=== PATIENT | female | born 1970 | race Caucasian/White ===

== ENCOUNTER 2018-03-20 12:51 | Day surgery (SDC) | payer BC ==
[~2018-03-20] VITALS: Ht 170.2 cm; Wt 139.1 kg
--- NOTE | ~2018-03-20 | OP ---
PATIENT NAME: BRENDAN WILLIS MEDICAL RECORD: [id number] :68 LOCATION:[facility] ADMISSION DATE: SURGEON: RICKI OJEDA MD DATE OF OPERATION: 03/20/2018 PROCEDURE: Colonoscopy with polypectomy. REFERRING PHYSICIAN: Dr. Diane Decker INDICATIONS: Ms. Willis is a delightful 47-year-old woman who has been referred for screening colonoscopy. Her sister was diagnosed with colon cancer at age 46. Ms. Willis has not had any symptoms of abdominal pain, change in bowel habits, melena, hematochezia, or abnormal weight loss. She presents for outpatient screening colonoscopy. PREMEDICATIONS: Total IV anesthesia (propofol 800 mg), BMI of 50. INSTRUMENT: Olympus video colonoscope, pediatric. PROCEDURE AND FINDINGS: After receiving informed consent, Ms. Willis was placed in left lateral decubitus position and sedated as per anesthesia. After achieving an adequate level of sedation, digital rectal exams from that showed few external hemorrhoidal tags. No fissure or fistulas. Normal sphincter tone. No palpable rectal masses. Colonoscope was introduced per rectally and advanced to the cecum without difficulty. The cecum, IC valve, and appendiceal orifice were identified. As the colonoscope was withdrawn, careful inspection was made of the [place] of the colon. Overall mucosa had normal vascular and fold pattern. There were few scattered diverticula seen in the sigmoid colon. In the distal rectum, was a 0.75-cm sessile polyp, removed with hot biopsy forceps technique. Retroflexion in rectum showed mild internal hemorrhoids. A good prep was present. Withdrawal time was 9 minutes. Ms. Willis tolerated the procedure well. No immediate complications. ASSESSMENT: 1. Rectal polyp, status post polypectomy. 2. Mild sigmoid diverticulosis coli. 3. Mild internal hemorrhoids. 4. Family history of colon cancer. RECOMMENDATIONS: 1. Followup histopathology. 2. Avoid aspirin, nonsteroidal anti-inflammatory drugs, and SUBRAMANIAN-2 inhibitors for 14 days postpolypectomy. 3. Recommend colonoscopy in 3 years. 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
[2018-03-20] MEDS ORDERED: WELLBUTRIN SR150 MG PO (13:32)
[2018-03-20] MEDS ORDERED: HYZAAR 100-25 T1 TAB PO (13:32)
[2018-03-20 13:37] VITALS: BP 131/81; Ht 170.2 cm; Wt 139.1 kg
== END 2018-03-20 16:00 | disposition home or self-care (01) ==
LOC: D.OPS 12:51
DX: Z12.11 Encounter for screening for malignant neoplasm of colon (principal); D12.8 Benign neoplasm of rectum; K57.30 Diverticulosis of large intestine without perforation or abscess without bleeding; K64.8 Other hemorrhoids; Z80.0 Family history of malignant neoplasm of digestive organs; Z01.812 Encounter for preprocedural laboratory examination